=== PATIENT | male | born 1950 | race Hispanic/Latino ===

== ENCOUNTER → 2022-05-01 | Outpatient (CLI) | payer BC | END | disposition home or self-care (01) | LOC: RAH 13:16 | PROVIDERS: ATTEND Nurse Practitioner | DX: M70.62 Trochanteric bursitis, left hip (principal) | CPT/HCPCS: 73721 ==

== ENCOUNTER 2022-06-15 06:00 | Day surgery (SDC) | payer BC ==
[2022-06-12 16:17] VITALS: BP 159/81
[~2022-06-15] VITALS: Ht 177.8 cm; Wt 87.1 kg
[2022-06-15] VITALS (27 sets, daily range): BP systolic 128–160; BP diastolic 53–76
[~2022-06-15 06:00] MED LIST: CEFAZOLIN SODIUM 2 GM VIAL IVPB SCH; CHLO25TA3 PO; DAPA10TA PO; DILT120C92 PO; EZET10TA48 PO; FENO54TA6 PO; FLUT1BLS3 IH; GABA600T10 PO; INSU100I24 SQ; ISOS60TA77 PO; LEVO25CA4 PO; RIVA20TA PO; ROPI0.5T7 PO; ROSU10TA28 PO; SEMA1PEN3 SQ; TRAZ-185 PO; VENL150T3 PO
[2022-06-15] MEDS ORDERED: 0.9%NACL 1000ML 1,000 ML IV ONE (06:29)
[2022-06-15] MEDS ORDERED: BUPIVACAINE/PF 0.25% 10ML VIAL IJ ONE (06:52)
[2022-06-15] MEDS ORDERED: ACET-2079 PO (08:43)
[2022-06-15] MEDS ORDERED: IPRATROPIUM/ALBUTEROL SULFATE 3 ML SOLUTION IH ONE (10:00)
== END 2022-06-15 11:00 | disposition home or self-care (01) ==
LOC: DAH 06:00
PROVIDERS: ATTEND Student in an Organized Health Care Education/Training Program
DX: M23.312 Other meniscus derangements, anterior horn of medial meniscus, left knee (principal); Z20.822 Contact with and (suspected) exposure to COVID-19; M23.322 Other meniscus derangements, posterior horn of medial meniscus, left knee; M22.42 Chondromalacia patellae, left knee; I10 Essential (primary) hypertension; J44.9 Chronic obstructive pulmonary disease, unspecified; E78.5 Hyperlipidemia, unspecified; E11.9 Type 2 diabetes mellitus without complications; I48.91 Unspecified atrial fibrillation; Z79.01 Long term (current) use of anticoagulants; Z79.899 Other long term (current) drug therapy
CPT/HCPCS: 80048; 85025; 84134; 86140; 87426; 36415; 29881; 97161; 82948 ×2; 97039; 97116; 97530; 94640; 82040 ×2; A4663; A4649 ×3; J3010; J3490 ×4; J1100; J2710; J0330; J7030; J2001; J2250; J2704; J2405; J2370; J0690 ×2; A6223; A4215; A4223; A4222; A4221; A6450

== ENCOUNTER → 2024-01-25 | Outpatient (CLI) | payer BC ==
[~2024-01-25] MED LIST changes: +ACET-2079 PO; -CEFAZOLIN SODIUM 2 GM VIAL IVPB SCH; +DILT120C78 PO; -DILT120C92 PO; +GABA-1405 PO; -GABA600T10 PO; +ROPI0.5T37 PO; -ROPI0.5T7 PO; -ROSU10TA28 PO; +ROSU10TA72 PO
== END | disposition home or self-care (01) ==
LOC: RAH 14:11
PROVIDERS: ATTEND Internal Medicine
DX: M50.323 Other cervical disc degeneration at C6-C7 level (principal); M48.02 Spinal stenosis, cervical region; M43.12 Spondylolisthesis, cervical region
CPT/HCPCS: 72125

== ENCOUNTER → 2024-07-20 | Outpatient (CLI) | payer BC ==
[~2024-07-20] MED LIST changes: -LEVO25CA4 PO; +LEVO25CA5 PO
--- NOTE | 2024-07-20 10:53 | HMCIMG ---
US AORTA LIMITED REASON: nicotine dependence. COMPARISON: None TECHNIQUE: Abdominal aorta ultrasound study was performed. FINDINGS: Proximal portion of abdominal aorta measures 2.6 x 2.4 cm, midportion measures 1.5 x 1.6 cm and distal portion measures 1.5 x 1.3 cm. Right iliac artery measures 8 x 8 mm. Left iliac artery measures 9 x 9 mm. IMPRESSION: No evidence of abdominal aortic aneurysm is seen.
== END | disposition home or self-care (01) ==
LOC: RAH 09:50
PROVIDERS: ATTEND Student in an Organized Health Care Education/Training Program
DX: Z13.9 Encounter for screening, unspecified (principal); F17.290 Nicotine dependence, other tobacco product, uncomplicated
CPT/HCPCS: 76775